=== PATIENT | male | born 1960 | race Caucasian/White ===

== ENCOUNTER 2022-12-18 10:47 | Emergency (ER) | payer OTHER, SELFPAY ==
[2022-12-18 10:48] VITALS: BP 122/77; PULSE 84; RESP 14; TEMP 37.4; O2SAT 98; BMI 33.0
[2022-12-18 11:49] VITALS: BP 122/77; PULSE 84; RESP 14; TEMP 37.4; O2SAT 98
[2022-12-18 11:51] LABS: Absolute Lymphocyte Count 0.87 X10^3/uL (0.83-4.51); Absolute Neutrophil Count 7.3 X10^3/uL (2.0-7.7); Basophil# 0.02 X10^3/uL; Basophil% 0.2 % (0-1); Hematocrit 38.2 % (40-54); Hemoglobin 13.1 g/dL (13.0-16.5); Lymphocyte # 0.87 X10^3/ul (0.83-4.51); Lymphocyte % 9.8 % (19-41); Mean Corp Hgb Conc 34.3 g/dL (32-36); Mean Corpuscular Hgb 28.8 pg (27.0-32.0); Mean Platelet Vol. 9.7 fl (6.2-12.0); Monocyte# 0.64 X10^3/uL; Monocyte% 7.2 % (0-10); NRBC Flagged by Analyzer 0 % (0-5); Neutrophil # 7.31 X10^3/uL (2.7-7.7); Neutrophil % 82.5 % (47-70); Platelet Count 169 K/mm3 (150-450); RBC Distribution Width CV 13.9 % (11.6-14.6); RBC Distribution Width SD 42.8 fl (35.1-43.9); Red Blood Count 4.55 M/mm3 (4.6-6.2); White Blood Count 8.9 K/mm3 (4.4-11.0)
[2022-12-18] MEDS: 0.9% Normal Saline 1,000 ML 1000 ML IV ×2 (11:55→13:25)
[2022-12-18] MEDS: Ibuprofen 400 MG Tablet 800 MG PO (11:58)
--- NOTE | 2022-12-18 12:06 | EX.ED.DYSGE1 ---
HPI History of Present Illness Chief Complaint: General Illness Informant: patient Onset/Context/Timing Onset: Days (8) Context: Gradual Onset Timing: Continuous and Waxes and wanes Quality: Aching Location: Head, neck Worsened by: Nothing Relieved by: Nothing Narrative Narrative: Patient presents with headache, fever, and myalgias that have been getting worse over the past 8 days. Patient was seen at [facility] yesterday and had a lab work-up. Patient states they were unsure as to the cause of his fever and body aches. Patient states he has a rash on left side of his chest. Patient seen disease so they started him on doxycycline. Patient states he has had 3 doses of doxycycline. Patient had a temperature of 101.7 today. Patient states he feels dizzy and lightheaded as well. Patient admits to some nausea but denies any vomiting. [facility] Medical History (Updated 12/18/22 @ 15:[address] Korey Laura DO) Anxiety Depression HTN (hypertension) Hypercholesterolemia Kidney stones Tinnitus Medical History no medical history Home Medications carvedilol 12.5 mg tablet 12.5 mg PO Q12H 12/18/22 [History Last Taken Unknown] doxycycline hyclate 200 mg tablet,delayed release (Doryx) 200 mg PO DAILY 12/18/22 [History Last Taken Unknown] duloxetine 60 mg capsule,delayed release (Cymbalta) 60 mg PO DAILY 12/18/22 [History Last Taken Unknown] simvastatin 40 mg tablet 40 mg PO DAILY 12/18/22 [History Last Taken Unknown] Allergy/AdvReac Type Severity Reaction Status Date / Time No Known Allergies Allergy Verified 12/18/22 11:33 Surgical History no surgical history no surgical history Social History Smoking Status: Never smoker ROS ROS ED Constitutional Constitutional ED: Reports fever(s); Denies chills Eyes Eyes: Denies blurry vision or change in vision ENT ENT ED: Reports sore throat; Denies rhinorrhea Cardiovascular Cardiovascular: Denies chest pain or palpitations Respiratory/Chest Respiratory/Chest: Reports dyspnea; Denies cough Gastrointestinal Gastrointestinal: Reports nausea; Denies vomiting Genitourinary Genitourinary ED: Denies dysuria or hematuria Musculoskeletal Musculoskeletal: Reports arthralgias, myalgias and neck pain Integumentary Reports rash; Denies abscess Neurologic Neurologic: Reports headache(s); Denies weakness Allergic/Immunologic Allergic/Immunologic ED: Denies mouth swelling or urticaria EXAM Physical Exam Const Vital Signs: 12/18/22 10:48 12/18/22 11:49 12/18/22 11:49 Temperature 99.3 F H 99.3 F H Temperature Source Oral Temporal Pulse Rate 84 84 Respiratory Rate 14 14 Respiratory Effort Normal Respiratory Pattern Normal Blood Pressure 122/77 H 122/77 H Blood Pressure Mean 92 92 Pulse Ox 98 98 Oxygen Delivery Method Room Air Room Air Positive well nourished and well developed General Appearance ED: well developed and NAD HEENT Reports moist mucous membranes Neck supple and no JVD Resp normal respiratory effort and clear to auscultation bilaterally Cardio regular rate, regular rhythm and no murmurs GI normal to inspection, nondistended, normoactive bowel sounds and non-tender Palpation: soft Extremity normal to inspection General Extremety ED: Negative for edema or tenderness General Extremity: Negative for edema Neuro oriented x3, CN's II-XII intact bilaterally and no sensory deficits noted Sensorium / Orientation: alert Motor Exam: strength 5/5 throughout Psych mental status grossly normal Skin no rashes or lesions noted MDM MDM MDM Narrative Medical decision making narrative: Differential diagnosis includes pneumonia, Lyme disease, cellulitis, kidney stones, rhabdomyolysis, sepsis, pancreatitis, and urinary tract infection. CBC will be obtained to assess for leukocytosis and anemia. Comprehensive metabolic profile will be obtained to assess for hepatic function, renal function, and electrolyte abnormality. Lipase will be obtained to assess for pancreatitis. Urinalysis will be obtained to assess for urinary tract infection and hematuria. Lactate will be obtained to assess for sepsis. Total CPK will be obtained to assess for rhabdomyolysis. COVID-19 rapid rapid antigen will be obtained to assess for COVID-19 infection. Influenza A and influenza B antigens will be obtained to assess for influenza infection. Blood cultures will be obtained to assess for sepsis. Chest x-ray will be obtained to assess for pneumonia. Lab Data Attestation: I reviewed the patient's lab results. Lab results narrative: CBC was reviewed and was within normal limits. Comprehensive metabolic profile was reviewed. Sodium was slightly low at 132. Glucose was 124. Total bilirubin was slightly elevated at 1.3. AST was 151 and ALT was 253. Alkaline phosphatase was slightly elevated at 140. CPK was reviewed and was normal at 123. Lipase was reviewed and was normal at 27. Urinalysis was reviewed. There is no evidence of urinary tract infection or hematuria. COVID-19 rapid antigen was reviewed and was negative. Influenza A and influenza B antigens were reviewed and were negative. Labs: Laboratory Results - last 24 hr 12/18/22 12/18/22 11:40 11:53 WBC 8.9 RBC 4.55 L Hgb 13.1 Hct 38.2 L MCV 84.0 MCH 28.8 MCHC 34.3 RDW Std Deviation 42.8 RDW Coeff of Beto 13.9 Plt Count 169 MPV 9.7 Immature Gran % (Auto) 0.300 Neut % (Auto) 82.5 H Lymph % (Auto) 9.8 L [place] % (Auto) 7.2 Eos % (Auto) 0.0 Baso % (Auto) 0.2 Absolute Neuts (auto) 7.3 Absolute Lymphs (auto) 0.87 Nucleated RBC % 0 Sodium 132 L Potassium 3.9 Chloride 104 Carbon Dioxide 25.0 Anion Gap 3 L BUN 11 Creatinine 1.11 Estim Creat Clear Calc 82.28 Est GFR (MDRD) Af Amer 87 Est GFR (MDRD) Non-Af 72 BUN/Creatinine Ratio 9.9 L Glucose 124 H Lactic Acid 0.8 Calcium 8.9 Total Bilirubin 1.30 H AST 151 H ALT 253 H Alkaline Phosphatase 140 H Total Creatine Kinase 123 Total Protein 7.0 Albumin 3.2 Globulin 3.8 Albumin/Globulin Ratio 0.8 L Lipase 27 Urine Color Yellow Urine Clarity Clear Urine pH 6.5 Ur Specific [place] 1.010 Urine Protein 15 H Urine Glucose (UA) Normal Urine Ketones 5 H Urine Occult Blood 10 H Urine Nitrite Negative Urine Bilirubin Negative Urine Urobilinogen 1 H Ur Leukocyte Esterase Negative Urine RBC 0 SEEN Urine WBC 0 SEEN Ur Squamous Epith Cells 0 SEEN Urine Bacteria 0 SEEN Urine Mucus 0 SEEN Radiography Diagnostic Testing: Clinical Impression(s) from Imaging Studies Abdomen/Pelvis CT 12/18/22 12:16 IMPRESSION: 1. Mild left hydronephrosis and hydroureter are present, however no radiopaque stone is seen in the kidney or ureter or bladder. This is consistent with a passed stone which is either too small and obscured by fluid within the bladder lumen or the stone is not radiopaque. 2. Colonic diverticulosis Electronically Signed: Polo Carl MD at 14:00 EDT , Chest X-Ray 12/18/22 12:25 IMPRESSION: Normal x-ray examination of the chest. Electronically Signed: Murtaza Wright MD at 13:03 EDT , CT scan of the abdomen and pelvis was obtained. There is mild left hydronephrosis and hydroureter. There is no radiopaque stone visualized. There is diverticulosis but no evidence of diverticulitis. This was interpreted by the radiologist and was also independently reviewed by myself. PA and lateral chest x-ray was obtained. There are 2 views. On my independent interpretation, lung rader are clear. There is normal cardiac silhouette. Bony thorax is normal. There is no acute process noted. Radiologist also interpreted the x-ray and agrees. Treatment and Re-Evaluation :: Patient was given IV fluids and Motrin. Patient was feeling better on reevaluation. Patient was advised of his findings. Patient was instructed to continue the doxycycline as prescribed. Patient was instructed to drink plenty of fluids. Patient was instructed to take Tylenol or ibuprofen as needed for any aches or fevers. Patient was instructed to follow-up with a primary care physician in 3 to 5 days. Patient and spouse understood and were agreeable with the plan. All questions were answered. Discharge Plan Triage Chief Complaint: General Illness ED Provider: Korey Laura Dx/Rx/DC Orders Clinical Impression: Cellulitis of chest wall, Febrile illness Instructions: ED Cellulitis Prescriptions: No Action carvedilol 12.5 mg tablet 12.5 mg PO Q12H Rx Instructions: must administer with a meal/food duloxetine [Cymbalta] 60 mg capsule,delayed release(DR/EC) 60 mg PO DAILY simvastatin 40 mg tablet 40 mg PO DAILY doxycycline hyclate [Doryx] 200 mg tablet,delayed release (DR/EC) 200 mg PO DAILY Primary Care Provider: Care Physician,No Primary Referrals: Kiki Nevarez MD [Med Staff - Materials Planning Manager] - 3-5 Days Care Physician,No Primary [Primary Care Provider] - Disposition Disposition: Home, Self Care
[2022-12-18 12:08] LABS: Bacteria 0 SEEN /hpf (None Seen); Mucous, Urine 0 SEEN /hpf (<or=2+); Red Blood Cells-Urine 0 SEEN /hpf (0-5); Squamous Epithelial Cells - UA 0 SEEN /hpf (0-5); White Blood Cells 0 SEEN /hpf (0-5)
[2022-12-18 12:08] LABS: ALB/GLOB Ratio 0.8 RATIO (0.9-2.4); AST(SGOT) 151 U/L (15-37); Alanine Aminotransfer ALT/SGPT 253 U/L (16-61); Albumin, Serum 3.2 g/dL (3.2-5.0); Alkaline Phosphatase 140 U/L (45-117); Anion Gap 3 (5-15); BUN 11 mg/dL (7-18); BUN/Creat Ratio 9.9 RATIO (10-20); CPK Total, Creatine Kinase 123 U/L (39-308); Calcium,Total 8.9 mg/dL (8.5-10.1); Chloride 104 mmol/L (98-107); Creatinine, Serum 1.11 mg/dL (0.70-1.30); EST Glomerular Filtration Rate 72 mL/min (>60); Est Glom Filt Rate - Afr Amer 87 mL/min (>60); Estimated Creatinine Clearance 82.28 ml/min; Globulin 3.8 g/dL (2.2-4.2); Glucose 124 mg/dL (74-106); Lipase 27 U/L (13-75); Potassium 3.9 mmol/L (3.5-5.1); Sodium Level 132 mmol/L (136-145)
[2022-12-18 12:16] LABS: Color, Urine Yellow (Yellow); Glucose, Dipstick Normal (Normal); Ketone-Dipstick 5 mg/dl (Negative); Leukocyte Esterase-Dipstick Negative /ul (Negative); Nitrite-Dipstick Negative (Negative); Occult Blood-Urine 10 /ul (Negative); Protein-Dipstick 15 mg/dl (Negative); Urine Bilirubin Dipstick Negative (Negative); Urine Clarity Clear (Clear); Urine Urobilinogen 1 mg/dl (Normal); Urine pH 6.5 (5.0 - 8.0)
--- NOTE | 2022-12-18 12:16 | CT_ITS ---
STUDY: CT ABDOMEN AND PELVIS WITHOUT CONTRAST REASON FOR EXAM: Male, 62 years old. Flank pain LEFT, POSSIBLE BUG BITE WITH EDEMA ON LEFT FLANK. DARK URINE RADIATION DOSAGE (If Supplied By Facility): CTDIvol = ( 18.09 ) mGy, DLP = ( 962.84 ) mGycm TECHNIQUE: Transaxial images were obtained from the dome of the diaphragm to the symphysis pubis without oral contrast, and without intravenous contrast. Sagittal and coronal images were reconstructed. Individualized dose optimization techniques were used for this CT. COMPARISON: None. FINDINGS: The visualized lung bases are unremarkable. The visualized portions of the heart are within normal limits. Normal liver. Normal gallbladder and extrahepatic biliary system. Normal spleen. Normal pancreas. Normal bilateral adrenal glands. Normal right kidney. Mild left hydronephrosis and hydroureter are present, however no radiopaque stone is seen in the kidney or ureter or bladder. This is consistent with a passed stone which is either too small and obscured by fluid within the bladder lumen or the stone is not radiopaque. Normal visualized stomach. Normal small intestine. There are multiple colonic diverticula consistent with diverticulosis. The appendix is visualized and appears normal. There is diffuse atherosclerotic calcification of the abdominal aorta, without a demonstrated aneurysm. Normal inferior vena cava. Normal retroperitoneum. Normal urinary bladder. Small to moderate-sized bilateral fat-containing inguinal hernias noted, left greater than right. Normal osseous structures. CT/Abdomen/Pelvis without Cont IMPRESSION: 1. Mild left hydronephrosis and hydroureter are present, however no radiopaque stone is seen in the kidney or ureter or bladder. This is consistent with a passed stone which is either too small and obscured by fluid within the bladder lumen or the stone is not radiopaque. 2. Colonic diverticulosis Electronically Signed: Polo Carl MD at 14:00 EDT Reading Location ID and State: [facility] / [place] , Service support ,
[2022-12-18 12:19] LABS: Lactic Acid 0.8 mmol/L (0.4-1.9)
--- NOTE | 2022-12-18 12:25 | RAD_ITS ---
STUDY: X-RAY CHEST REASON FOR EXAM: Male, 62 years old. Fever TECHNIQUE: PA and lateral views of the chest. COMPARISON: None. FINDINGS: The lungs are clear and expanded. There is no demonstrated pleural abnormality. Normal size heart. Normal mediastinum and loreta. Normal visualized pulmonary arteries. Normal visualized aortic arch and descending thoracic aorta. Normal visualized thoracic spine. Normal visualized ribs, clavicles, and shoulders. There is no demonstrated abnormality of the visualized soft tissue structures of the upper abdomen. RAD/Chest PA and Lateral IMPRESSION: Normal x-ray examination of the chest. Electronically Signed: Murtaza Wright MD at 13:03 EDT ,
[2022-12-18 13:00] VITALS: PULSE 78; RESP 18; O2SAT 100
[2022-12-18 15:00] VITALS: PULSE 82; RESP 20; O2SAT 100
== END 2022-12-18 15:33 | disposition home or self-care (01) ==
PROVIDERS: Emergency Provider Emergency Medicine; Visit Provider Emergency Medicine
DX: L03.313 Cellulitis of chest wall (principal); R50.9 Fever, unspecified; R11.0 Nausea; R51.9 Headache, unspecified; M79.10 Myalgia, unspecified site; I10 Essential (primary) hypertension; E78.00 Pure hypercholesterolemia, unspecified; Z79.899 Other long term (current) drug therapy
CPT/HCPCS: 71046; 74176; 80053; 81001; 82550; 83605; 83690; 85025; 87040; 87428; 96360; 96361; 99284; J7030; A4216